=== PATIENT | female | born 1990 | race Caucasian/White ===

== ENCOUNTER 2025-08-13 03:43 | Emergency (ER) | payer BC, SELFPAY ==
[2025-08-13] VITALS (73 sets, daily range): BP systolic 159–240; BP diastolic 95–160; PULSE 64–102; TEMP 36.9; O2SAT 92–98
--- NOTE | 2025-08-13 | XR_ITS ---
[address] [address] Patient Name: CESAR WILKINS MRN: [id number] date: 1990 Sex: F Assigned Patient Location: ER Current Patient Location: ER Accession/Order Number: [id number] Exam Date: 08/13/2025 05:45 Report Date: 08/13/2025 08:09 At the request of: DANIEL HERNANDEZ MD Procedure: XR chest 1V XR chest 1V 08/13/2025 6:08 AM SIGNS AND SYMPTOMS: ^hypertension PROTOCOL: Frontal radiograph of the chest COMPARISON: None FINDINGS: The trachea is midline. The heart and mediastinal structures are within normal limits. The lung parenchyma is clear. The bony thorax is intact. XR/XR chest 1V IMPRESSION: No acute cardiopulmonary pathology. Impression dictated by: Kem Diego M.D. 08/13/2025 8:09 AM Dictation Location: [place] [address] Electronically authenticated by: [id number] Y Date: 08/13/2025 08:09
[2025-08-13 06:17] LABS: Hematocrit 41.1 % (36.0-48.0); Hemoglobin 14.8 g/dL (12.0-16.0); Mean Corpuscular Hemoglobin 29.4 pg (26.7-34.0); Mean Corpuscular Volume 81.7 fL (81.0-99.0); Red Blood Count 5.03 10^6/uL (4.20-5.40); White Blood Count 9.6 10^3/uL (4.0-11.0)
[2025-08-13 06:18] LABS: Mean Corpuscular HGB Conc 36.0 g/dL (29.9-35.2); Platelet Count 109 10^3/uL (150-450)
[2025-08-13 06:20] LABS: Immature Granulocytes Abs Auto 0.04 10^3/uL (0.00-0.03); Immature Granulocytes Pct Auto 0.4 % (0.0-0.5); Lymphocytes Absolute Auto 0.5 10^3/uL (1.2-3.8)
[2025-08-13 06:21] LABS: Anion Gap 15.1; Blood Urea Nitrogen 14.0 mg/dL (7.0-18.0); Calcium 8.9 mg/dL (8.5-10.1); Carbon Dioxide 26.1 mmol/L (21.0-32.0); Chloride 101 mmol/L (98-107); Estimated GFR (African America >60 (>=60 mL/min/1.73m^2); Estimated GFR (Non-African Ame >60 (>=60 mL/min/1.73m^2); Glucose 263 mg/dL (74-106); Potassium 3.2 mmol/L (3.5-5.1); Sodium 139 mmol/L (136-145)
--- NOTE | 2025-08-13 06:41 | ED.GENADUL1 ---
HPI HPI - General Adult General Chief complaint: Weakness Stated complaint: WEAKNESS, DIZZINESS Time Seen by Provider: 08/13/25 03:50 History of Present Illness HPI narrative: 35-year-old female presents for weakness on her left arm and her left leg. She states it started at 9 PM, about 9 hours before she arrived here. She does not complain of a headache. She does not remember the last time her blood pressure was checked, many years. She does not have chest pain or palpitations or shortness of breath or dizziness. Related Data Home Medications ?Medication ?Instructions ?Recorded ?Confirmed No Known Home Medications 08/13/25 08/13/25 Allergies Allergy/AdvReac Type Severity Reaction Status Date / Time No Known Drug Allergies Allergy Verified 08/13/25 06:44 Review of Systems ROS Narrative A ten point review of systems is negative except as noted above. Exam Narrative Exam Narrative: Nurses note and vital signs reviewed General:The patient appears well and in no apparent distress.Patient is resting comfortably on cart. Skin:Warm, dry, no pallor noted.There is no rash noted. Head:Normocephalic, atraumatic Eye: Normal conjunctiva, no drainage Ears, Nose, Mouth, and Throat: oral mucosa is moist. Nares patent. Cardiovascular:Regular Rate and Rhythm Respiratory:Patient is in no distress, no accessory muscle use, lungs are clear to auscultation, no wheezing, rales or rhonchi Back:non-tender, no CVA tenderness bilaterally to percussion. GI: Soft and nontender Musculoskeletal: The patient has no evidence of calf tenderness, no pitting edema, symmetrical pulses noted bilaterally Neurological: Awake alert and oriented. Cranial nerves II through XII are intact. She has barely perceptible weakness in most muscle groups in the left arm and leg compared to the right. Hand grasp is symmetric. The patient had barely perceptible left arm drift. No drift in the left leg. Psychiatric:Cooperative Constitutional Vital Signs, click to edit/add: Last Vital Signs Temp 98.5 F 08/13/25 06:42 Pulse 75 08/13/25 06:42 Resp 19 08/13/25 06:42 BP 200/110 H 08/13/25 06:42 Pulse Ox 96 08/13/25 06:42 Course Vital Signs Vital signs: Vital Signs Temperature 98.5 F 08/13/25 06:42 Pulse Rate 75 08/13/25 06:42 Respiratory Rate 19 08/13/25 06:42 Blood Pressure 200/110 H 08/13/25 06:42 Pulse Oximetry 96 08/13/25 06:42 Temperature 98.5 F 08/13/25 06:42 Pulse Rate 75 08/13/25 06:42 Respiratory Rate 19 08/13/25 06:42 Blood Pressure 200/110 H 08/13/25 06:42 Pulse Oximetry 96 08/13/25 06:42 Medical Decision Making MDM Narrative Medical decision making narrative: CT scan ordered to rule out bleed due to the high blood pressure and the result is pending. The patient has received 2 doses of IV labetalol, 10 and 20 mg as well as 10 mg of IV hydralazine for elevated blood pressure. The patient is signed out to Dr. Conroy at change of shift. Differential Diagnosis Differential Diagnosis: Hypertension, intracranial hemorrhage, stroke Lab Data Lab results reviewed: Yes I reviewed the patient's lab results Labs: Lab Results 08/13/25 Range/Units 04:50 WBC 9.6 (4.0-11.0) 10^3/uL RBC 5.03 (4.20-5.40) 10^6/uL Hgb 14.8 (12.0-16.0) g/dL Hct 41.1 (36.0-48.0) % MCV 81.7 (81.0-99.0) fL MCH 29.4 (26.7-34.0) pg MCHC 36.0 H (29.9-35.2) g/dL RDW 12.5 (11.0-15.0) % Plt Count 109 L (150-450) 10^3/uL MPV 13.5 (9.5-13.5) fL Neut % (Auto) 66.6 (43.0-75.0) % Lymph % (Auto) 26.3 (20.5-60.0) % [place] % (Auto) 4.9 (1.7-12.0) % Eos % (Auto) 1.1 (0.9-7.0) % Baso % (Auto) 0.7 (0.2-2.0) % Neut # (Auto) 6.4 (1.4-6.5) 10^3/uL Lymph # (Auto) 0.5 L (1.2-3.8) 10^3/uL [place] # (Auto) 0.5 (0.3-0.8) 10^3/uL Eos # (Auto) 0.1 (0.0-0.7) 10^3/uL Baso # (Auto) 0.1 (0.0-0.1) 10^3/uL Abs Immat Gran (auto) 0.04 H (0.00-0.03) 10^3/uL Imm/Tot Granulo (auto) 0.4 (0.0-0.5) % Sodium 139 (136-145) mmol/L Potassium 3.2 L (3.5-5.1) mmol/L Chloride 101 (98-107) mmol/L Carbon Dioxide 26.1 (21.0-32.0) mmol/L Anion Gap 15.1 BUN 14.0 (7.0-18.0) mg/dL Creatinine 0.89 (0.55-1.02) mg/dL Est GFR ( Amer) >60 (>=60 mL/min/1.73m^2) Est GFR (Non-Af Amer) >60 (>=60 mL/min/1.73m^2) BUN/Creatinine Ratio 15.7 Glucose 263 H (74-106) mg/dL Calcium 8.9 (8.5-10.1) mg/dL Serum HCG, Qual Negative (NEGATIVE) Imaging Data Chest x-ray: My impression: No acute findings Critical Care Time Critical Care Time Critical Care Time: Yes Total Critical Care Time: 40 Attestation: Due to the high probability of sudden and clinically significant deterioration in the patient's condition he/she required the highest level of my preparedness to intervene urgently I provided critical care time including documentation time, medication orders and management, reevaluation, vital sign assessment, ordering and reviewing of lab tests, ordering and reviewing of x-ray studies, and admission orders. Aggregate critical care time is 40 minutes including only time during which I was engaged in work directly related to his/her care and did not include time spent treating other patients simultaneously. Discharge Plan Discharge Patient Disposition: Still a Patient
--- NOTE | 2025-08-13 06:45 | ECG_ITS ---
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
[2025-08-13] MEDS: HYDRALAZINE HCL 20 MG/ML VIAL 10 MG IVP (06:50)
--- NOTE | 2025-08-13 07:24 | CT_ITS ---
[address] [address] Patient Name: CESAR WILKINS MRN: [id number] date: 1990 Sex: F Assigned Patient Location: ER Current Patient Location: [facility] Accession/Order Number: [id number] Exam Date: 08/13/2025 08:07 Report Date: 08/13/2025 09:12 At the request of: SHERRI HORN MD Procedure: CT angio head CT angio neck, CT angio head 08/13/2025 8:15 AM SIGNS AND SYMPTOMS: Left arm and leg weakness CONTRAST: 100 mL of intravenous Omnipaque 350 TECHNIQUE: Multi-detector CT angiography axial slices of the head were obtained before and during intravenous administration of IV contrast material. Sagittal, coronal, and 3-D reconstructions were performed and viewed on a separate workstation. CT was performed with one or more of the following dose reduction techniques: Automated exposure control, adjustment of the mA and/or kV according to patient size, or use of iterative reconstruction technique. Stenoses were measured using the NASCET criteria. COMPARISON: None. FINDINGS: CTA HEAD: The superior cerebellar arteries, posterior inferior cerebellar arteries, and the basilar artery are within normal limits. The posterior cerebral arteries are unremarkable. The intracranial segments of the internal carotid arteries are within normal limits. There are normal anterior and middle cerebral arteries. Anterior communicating artery is patent. Posterior communicating arteries are present. The deep venous system and dural venous systems appear to be patent. No bony abnormalities are appreciated. CTA NECK: There is a normal three-vessel arch. The subclavian arteries are within normal limits. The vertebral arteries arise from the subclavian arteries and are normal in course and caliber up to the skull base. The common and internal carotid arteries are within normal limits. Visualized lung parenchyma is clear. No acute bony abnormalities are identified. Degenerative changes are noted in the cervical spine. The paraspinous soft tissues are within normal limits. There is polypoid mucosal thickening in the right maxillary sinus. CT/CT angio head IMPRESSION: No evidence of focal stenosis, aneurysmal dilatation, dissection or occlusion. Impression dictated by: Kem Diego M.D. 08/13/2025 9:12 AM Dictation Location: [place] [address] Electronically authenticated by: [id number] Y Date: 08/13/2025 09:12
--- NOTE | 2025-08-13 07:24 | CT_ITS ---
[address] [address] Patient Name: CESAR WILKINS MRN: [id number] date: 1990 Sex: F Assigned Patient Location: ER Current Patient Location: [facility] Accession/Order Number: [id number] Exam Date: 08/13/2025 08:07 Report Date: 08/13/2025 09:12 At the request of: SHERRI HORN MD Procedure: CT angio head CT angio neck, CT angio head 08/13/2025 8:15 AM SIGNS AND SYMPTOMS: Left arm and leg weakness CONTRAST: 100 mL of intravenous Omnipaque 350 TECHNIQUE: Multi-detector CT angiography axial slices of the head were obtained before and during intravenous administration of IV contrast material. Sagittal, coronal, and 3-D reconstructions were performed and viewed on a separate workstation. CT was performed with one or more of the following dose reduction techniques: Automated exposure control, adjustment of the mA and/or kV according to patient size, or use of iterative reconstruction technique. Stenoses were measured using the NASCET criteria. COMPARISON: None. FINDINGS: CTA HEAD: The superior cerebellar arteries, posterior inferior cerebellar arteries, and the basilar artery are within normal limits. The posterior cerebral arteries are unremarkable. The intracranial segments of the internal carotid arteries are within normal limits. There are normal anterior and middle cerebral arteries. Anterior communicating artery is patent. Posterior communicating arteries are present. The deep venous system and dural venous systems appear to be patent. No bony abnormalities are appreciated. CTA NECK: There is a normal three-vessel arch. The subclavian arteries are within normal limits. The vertebral arteries arise from the subclavian arteries and are normal in course and caliber up to the skull base. The common and internal carotid arteries are within normal limits. Visualized lung parenchyma is clear. No acute bony abnormalities are identified. Degenerative changes are noted in the cervical spine. The paraspinous soft tissues are within normal limits. There is polypoid mucosal thickening in the right maxillary sinus. CT/CT angio neck IMPRESSION: No evidence of focal stenosis, aneurysmal dilatation, dissection or occlusion. Impression dictated by: Kem Diego M.D. 08/13/2025 9:12 AM Dictation Location: [place] [address] Electronically authenticated by: [id number] Y Date: 08/13/2025 09:12
[2025-08-13] MEDS: NICARDIPINE IN NACL, ISO-OSM 40 MG/200 ML PIGGYBACK 25 MG IV (07:43)
[2025-08-13] MEDS: LABETALOL HCL 20 MG/4 ML SYRINGE 10 MG IVP (07:49)
[2025-08-13 08:03] LABS: Cholesterol 224 mg/dL (<=200); HDL Cholesterol 45 mg/dL (40-60); Triglycerides 123 mg/dL (<=150); VLDL CHOLESTEROL 24.6 mg/dL
[2025-08-13] MEDS: ATORVASTATIN CALCIUM 40 MG TABLET PO (09:27)
[2025-08-13] MEDS: ASPIRIN 81 MG TAB.CHEW 324 MG PO (09:27)
--- NOTE | 2025-08-13 09:38 | CA_ITS ---
Patient Name: CESAR WILKINS MR#: [id number] : 1990 Exam Date: 08/13/2025 Ordering Doctor: NAOMI NELSON ECHOCARDIOGRAM REPORT PROCEDURE: CA ECHO DOPPLER COMPLETE INDICATIONS: CVA, hypertension COMPARISON: None. DESCRIPTION: COMPLETE ECHOCARDIOGRAM Real-time transthoracic echocardiography with 2D, M-mode, spectral and color flow Doppler performed. QUALITY: Technical quality was good. LEFT VENTRICLE: Normal chamber size. Normal left ventricular wall thickness. LV EF: Global left ventricular systolic function is normal; visually estimated ejection fraction is 55 to 60%. No significant wall motion abnormalities. DIASTOLIC: Normal diastolic function. ATRIAL SEPTUM: Agitated saline contrast does not reveal an intra-cardiac shunt. LEFT ATRIUM: Normal chamber size. RIGHT ATRIUM: Normal chamber size. RIGHT VENTRICLE: Normal chamber size. Normal right ventricular systolic function. TRICUSPID VALVE: Normal mobility and thickness. No stenosis with no regurgitation. Unable to assess right-sided pressures due to lack of measurable tricuspid regurgitation. MITRAL VALVE: Normal mobility and thickness. No evidence of mitral valve stenosis. There is no mitral annular calcification. Trivial mitral regurgitation. AORTIC VALVE: Normal trileaflet appearance. No visible sclerosis. Normal leaflet mobility. No evidence of aortic valve stenosis. No aortic regurgitation. AORTIC ROOT: Normal diameter and appearance. PULMONIC VALVE: Normal thickness and mobility. No stenosis. No regurgitation. PERICARDIUM: No evidence of pericardial effusion. IVC: Not well visualized. CONCLUSION: 1. Global left ventricular systolic function is normal; visually estimated ejection fraction is 55 to 60% 2. Normal right ventricular size and systolic function 3. Normal diastolic function 4. The left atrium is normal in size 5. No significant valvular abnormalities 6. Agitated saline contrast does not reveal any intracardiac shunt Adult Echocardiography Procedure Report Left Ventricle LVEDD (3.7 - 5.6 cm): 4.71 cm LVESD (2.2 - 4.0 cm): 3.05 cm LVIVS thickness (0.6 - 1.2 cm): 0.89 cm LVPW thickness (0.5 - 1.0 cm): 0.96 cm e': 0.10 m/s E - e': 5.73 LVOT Max Gradient: 3.38 mm[Hg] LVOT Area (cm2): 0.92 m/s Peak Velocity (LVOT): 0.92 m/s Mean Velocity (LVOT): 0.64 m/s LVOT Diameter 2.14 cm Left Atrium LA Volume Index (2D A2C): 18.83 ml/m2 Left Atrium Systolic Dimension: 3.98 cm Mitral Valve MV E to A Ratio: 0.73 Mitral Valve A-Wave Peak Velocity: 0.80 m/s Mitral Valve E-Wave Peak Velocity: 0.59 m/s Right Ventricle Aorta AO Root Diam: 3.10 cm Aortic Valve AoV Area (Peak Spenser): 2.01 cm2, 2.01 cm2 AoV Area (VTI): 2.28 cm2, 2.28 cm2 Peak Velocity(Antegrade Flow): 1.64 m/s Peak Gradient(Antegrade Flow): 10.73 mm[Hg] Mean Velocity(Antegrade Flow): 0.97 m/s Mean Gradient(Antegrade Flow): 4.61 mm[Hg] Velocity Time Integral: 27.61 cm Tricuspid Valve Pulmonic Valve Mean Gradient: 3.13 mm[Hg], 2.96 mm[Hg] Mean Velocity: 0.83 m/s, 0.81 m/s Peak Velocity: 1.17 m/s Peak Gradient: 5.53 mm[Hg], 5.47 mm[Hg] Right Atrium Dictated by: Norman Arce M.D. on 08/13/2025 at 16:20 Approved by: Norman Arce M.D. on 08/13/2025 at 16:23
--- NOTE | 2025-08-13 09:38 | MR_ITS ---
The [address] [address] Patient Name: CESAR WILKINS MRN: [facility]:[id number] date: 1990 Sex: F Assigned Patient Location: ER Current Patient Location: ER Accession/Order Number: [id number] Exam Date: 08/13/2025 10:47 Report Date: 08/13/2025 11:44 At the request of: NAOMI NELSON MD Procedure: MR head/brain wo/w con MR head/brain wo/w con 08/13/2025 11:29 AM SIGN AND SYMPTOMS: ^per dr smiley neuro wanted to add contrast ^CVA PROTOCOL: Multiplanar multisequence MR images of the brain with and without IV contrast CONTRAST: 20 mL of intravenous Dotarem COMPARISON: CT from the same date FINDINGS: Extra axial spaces: There is a dural based extra-axial homogeneously enhancing 1.0 x 0.8 cm mass along the right cerebellopontine angle posterior to the internal acoustic neuritis consistent with a meningioma. Hemorrhage: None. Ventricular system: Within normal limits. Basal cisterns: Within normal limits and not effaced. Cerebral parenchyma: There is diffusion restriction within the putamen on the right extending into the posterior limb of the right internal capsule and towards the periventricular white matter in the right perirolandic region. There is accompanying edema on T2 and FLAIR. No accompanying abnormal postcontrast enhancement Midline shift: None.. Cerebellum: Within normal limits. Brainstem: Within normal limits. OTHER: Calvarium: Normal marrow signal. Vascular system: Satisfactory flow voids within the anterior and posterior circulation. Visualized Paranasal sinuses: Their is polypoid mucosal thickening in the right maxillary sinus and to a lesser extent the left maxillary sinus. Visualized Orbits: Within normal limits. Visualized upper cervical spine: Within normal limits. Sella and skull base: Within normal limits. MR/MR head/brain wo/w con IMPRESSION: There is diffusion restriction within the putamen on the right extending into the posterior limb of the right internal capsule and towards the periventricular white matter in the right perirolandic region. This is consistent with acute to subacute ischemia. No hemorrhagic transformation. There is a dural based extra-axial homogeneously enhancing 1.0 x 0.8 cm mass along the right cerebellopontine angle posterior to the internal acoustic neuritis consistent with a meningioma. Impression dictated by: Kem Diego M.D. 08/13/2025 11:44 AM Dictation Location: [place] [address] Electronically authenticated by: [id number] Y Date: 08/13/2025 11:44
[2025-08-13 10:05] LABS: Thyroid Stimulating Hormone 3.008 uIU/mL (0.358-3.740)
--- NOTE | 2025-08-13 10:15 | CT_ITS ---
The [address] [address] Patient Name: CESAR WILKINS MRN: [id number]:[id number] date: 1990 Sex: F Assigned Patient Location: ER Current Patient Location: ER Accession/Order Number: [id number] Exam Date: 08/13/2025 10:25 Report Date: 08/13/2025 10:46 At the request of: SHERRI HORN MD Procedure: CT stroke head/brain wo con CT stroke head/brain wo con 08/13/2025 10:29 AM SIGNS AND SYMPTOMS: ^significant weakness in left arm, facial droop TECHNIQUE:Multi-detector CT axial slices of the brain were obtained without IV contrast. CT was performed with one or more of the following dose reduction techniques: Automated exposure control, adjustment of the mA and/or kV according to patient size, or use of iterative reconstruction technique. COMPARISON: 08/13/2025 from 5:56 AM FINDINGS: There is no shift of the midline structures, acute intracranial bleeding, or mass effect. There is hypoattenuation in the putamen on the right possibly representing sequelae of subacute ischemia. There is age-related cortical atrophy. This periventricular white matter hypoattenuation. Atherosclerotic changes are noted in the intracranial segments of the internal carotid arteries. The ventricular system is normal in size. The brainstem and the cerebellum are unremarkable. Mucosal thickening is noted in the right maxillary sinus. The visualized intraorbital contents and the infratemporal soft tissues show no acute abnormality. The osseous structures in the skull base and the calvarium show no abnormality. CT/CT stroke head/brain wo con IMPRESSION: There is hypoattenuation in the putamen on the right possibly representing sequelae of subacute ischemia. This is unchanged. Mild chronic age-related neurodegenerative changes are noted as above. Impression dictated by: Kem Diego M.D. 08/13/2025 10:46 AM Dictation Location: [place] [address] Electronically authenticated by: [id number] Y Date: 08/13/2025 10:46
--- NOTE | 2025-08-13 11:05 | PC.NURSE ---
11:00 am: End of shift Patient report received from WALLY Aguilar at this time. - Rima Moore RN
[2025-08-13] MEDS: CLOPIDOGREL BISULFATE 75 MG TABLET 300 MG PO (12:23)
--- NOTE | 2025-08-13 12:57 | PC.NURSE ---
12:52- Called WALLY Fowler on [facility] to discuss bringing patient up to floor. Staff states she is in another room and patient will have to wait to come up.
--- NOTE | 2025-08-13 16:36 | PC.NURSE ---
1625: Patient report called to [facility] at this time. Spoke with WALLY Archibald. Aware that patient is in route.
== END 2025-08-13 16:22 | disposition short-term general hospital (02) ==
PROVIDERS: Emergency Medicine; Student in an Organized Health Care Education/Training Program; Emergency Provider Emergency Medicine
DX: I63.9 Cerebral infarction, unspecified (principal); R29.707 NIHSS score 7; I16.1 Hypertensive emergency
CPT/HCPCS: 36415; 70450; 70496; 70498; 70553; 71045; 80048; 80061; 82948; 83970; 84443; 84484; 84703; 85025; 93005; 93306; 96365; 96375; 99285; A9575; J0360; J1920; J2404; J2405; Q9967